=== PATIENT | male | born 1975 | race Caucasian/White ===

== ENCOUNTER 2017-12-24 23:39 | Emergency (ER) | payer MEDICAID ==
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
[2017-12-24] MEDS ORDERED: HYDROCODONE/APAP 5/325 TAB PO ONE (23:50)
[2017-12-24] MEDS ORDERED: IBUPROFEN 800 MG TAB PO ONE (23:50)
[2017-12-25] MEDS ORDERED: fentaNYL 100 MCG/2 ML INJ IVP ONE (00:38)
[2017-12-25 01:18] VITALS: BP 130/79
--- NOTE | 2017-12-25 14:45 | ASMTCMCOM ---
CM Note CM Note Notes: Patient contacted for follow up after ER visit related to patellar fracture on 12/24/17. Patient attempted to schedule an appointment with Dr. Moreno at [facility] as instructed per discharge instructions/ER referral. He was unable to schedule appointment with his insurance and told that he would have to be "self pay" due to his out of state medicaid I contacted Katy at [facility] and she confirmed that they are unable to bill patient's Medicaid ([facility]) for an office visit. I contacted [facility] as well, and they have the same policy. I spoke with patient after confirming with Dr. Johnson that it is strongly recommended that patient follow up with an orthopedic surgeon within the next week or two and get scheduled for surgical repair. I reinforced with patient the importance of continuing with his discharge instructions/precautions and that he should return home ([facility]) if able, to seek orthopedic follow up and surgery. Patient states that he is visiting his parents in [place] and was here to "help" them with a potential upcoming "move" to [place]. He acknowledges that he is very limited in what he can do to help them at this point and will consider returning to [place] for follow up care. Date Signed: 12/25/2017 02:17 PM Electronically Signed By:Macarena Hernandez RN
== END 2017-12-25 01:18 | disposition home or self-care (01) ==
LOC: EDUNIT#
DX: S82.002A Unspecified fracture of left patella, initial encounter for closed fracture (principal); W01.0XXA Fall on same level from slipping, tripping and stumbling without subsequent striking against object, initial encounter; Y93.01 Activity, walking, marching and hiking; Y92.410 Unspecified street and highway as the place of occurrence of the external cause; Z72.0 Tobacco use
CPT/HCPCS: 96374; J3010

== ENCOUNTER 2017-12-31 09:00 | Emergency (ER) | payer MEDICAID ==
[2017-12-31] MEDS ORDERED: OXYCODONE/APAP 5/325 TAB PO ONE (09:32)
--- NOTE | 2017-12-31 09:35 | EDPHY ---
H & P Stated Complaint: fx l patella last week/insurance issues/can't get ortho/out of pain meds Time Seen by Provider: 12/31/17 09:16 HPI/ROS: CHIEF COMPLAINT: Continued left knee pain HISTORY OF PRESENT ILLNESS: 42-year-old male seen the emergency department 7 days ago for complaints of acute left knee pain after he sustained a mechanical fall tripping landing on his left anterior knee noted to have a transverse inferior patella fracture, placed in knee immobilizer. That time case management consulted because he has out of state Medicaid. At that time egg caser discussed the challenges of out of state Medicaid and discussed with patient possibility of returning to [facility] for follow-up care. He returns to the ER complaining of continued pain, stating that he is unable to return to [facility] is hoping he can get further orthopedic care somewhere in [place]. He denies: Calf pain, cramping, discoloration, chest pain, dyspnea PRIMARY CARE PROVIDER: REVIEW OF SYSTEMS: A ten point review of systems was performed and is negative with the exception of the items mentioned in the HPI PHYSICAL EXAM (Prior to examination, patient consented to physical exam, hands were washed and my usual and customary physical exam procedures followed) 1) GENERAL: Well-developed, well-nourished, alert and oriented. Appears to be in no acute distress. 2) HEAD: Normocephalic 3) HEENT: Pupils equal, round, reactive to light bilaterally. 4) LUNGS: Breathing comfortably. 5) MUSCULOSKELETAL: Exam of the left knee shows soft tissue swelling with associated tenderness to palpation. Limited range of motion secondary to pain. Negative Homans. No palpable cord. No discoloration. . Compartments are soft. 6) SKIN: Normal coloration 7) VASCULAR: DP,PT pulses and cap refill present and brisk distally DIFFERENTIAL DIAGNOSIS: in no particular order including but not limited to fracture, sprain, compartment syndrome, septic arthritis, DVT MEDICAL DECISION MAKING I reviewed this patient's old medical records. I empathized with the challenges of seeking orthopedic care given his insurance situation. I have agreed to give him 1 further, final prescription for analgesia and will have the egg caser consult see if he can possibly get follow up at [facility] orthopedic or [facility] orthopedics. Doubt septic arthritis, doubt DVT, doubt compartment syndrome. I saw this patient independently based on established practice protocols. Care of patient under supervision of secondary supervising physician Dr Harris . - Personal History Current Tetanus Diphtheria and Acellular Pertussis (TDAP): Yes - Medical/Surgical History Hx Asthma: No Hx Chronic Respiratory Disease: No Hx Diabetes: No Hx Cardiac Disease: No Hx Renal Disease: No Hx Cirrhosis: No Hx Alcoholism: No Hx HIV/AIDS: No Hx Splenectomy or Spleen Trauma: No Other PMH: kidney stones fx l patella - Social History Smoking Status: Current every day smoker Constitutional: Initial Vital Signs Temperature (C) 36.5 C 12/31/17 09:12 Heart Rate 87 12/31/17 09:12 Respiratory Rate 17 12/31/17 09:12 Blood Pressure 123/79 H 12/31/17 09:12 O2 Sat (%) 98 12/31/17 09:12 O2 Delivery Mode Room Air Allergies/Adverse Reactions: ibuprofen Allergy (Verified 12/31/17 09:11) latex Allergy (Verified 12/31/17 09:11) morphine Allergy (Verified 12/31/17 09:11) Penicillins Allergy (Verified 12/31/17 09:11) Home Medications: Medication Instructions Recorded Hydrocodone/APAP 5/325 [Leggett 1 tab PO Q6 PRN #10 tab 12/31/17 5/325 (RX)] Medical Decision Making - Data Points Medications Given: Discontinued Medications Oxycodone/Acetaminophen (Percocet 5/325) 2 tab PO EDNOW ONE Stop: 12/31/17 09:33 Last Admin: 12/31/17 09:34 Dose: 2 tab Departure - Departure Disposition: Home, Routine, Self-Care Clinical Impression: Left patella fracture Qualifiers: Encounter type: subsequent encounter Fracture type: closed Fracture morphology : transverse Fracture alignment: displaced Fracture healing: with routine healing Qualified Code(s): S82.032D - Displaced transverse fracture of left patella, subsequent encounter for closed fracture with routine healing Condition: Good Instructions: Patellar Fracture (ED) Additional Instructions: Return to the ER immediately if you experience discoloration, have worsening pain, numbness, tingling, or any other symptoms that concern you. If you received x-rays in the emergency department today, be advised, that ligamentous , tendon, muscular, and other non-bony injury cannot be fully ruled out. Try to keep your affected extremity elevated above the level of your chest, and keep cold packs on the affected area, for the next 48 hours. Referrals: Micheal Moreno MD [Medical Doctor] - 2-3 days, call for appt. Prescriptions: Hydrocodone/APAP 5/325 [Leggett 5/325 (RX)] 1 tab PO Q6 PRN #10 tab PRN Reason: Pain, Severe
[2017-12-31 10:53] VITALS: BP 131/78
--- NOTE | 2017-12-31 12:18 | ASMTCMCOM ---
CM Note CM Note Notes: See ER report from 12/24/17 and CM report from 12/25/17. Patient was visiting his father in [place] from [facility] and has decided to permanently relocate to [place]. He followed up with [place] with [employer] since his last ER visit and has completed an application for [place] Medicaid. He was "approved" and his application is pending. I have LM with [facility] to inquire into the timeline of when his Medicaid will be active and encouraged patient to follow up with [facility] [place] as well. I provided patient with the ER CM phone number and asked him to call us as soon as he confirms that his Medicaid is active so that we can fax today's ER report/referral to Dr. Moreno ( orthopedic referral). Date Signed: 12/31/2017 11:42 AM Electronically Signed By:Macarena Hernandez RN
--- NOTE | 2018-01-02 16:12 | ASMTCMCOM ---
CM Note CM Note Notes: Patient called CM to update status of [place] Medicaid. Per patient, his Medicaid number is [id number] and his status will be updated as "active" by January 05. I have faxed over patient's last ER report/referral to Dr. Moreno @ [facility] for Orthopedics and encouraged patient to follow up with them as well Date Signed: 01/02/2018 04:08 PM Electronically Signed By:Macarena Hernandez RN
== END 2017-12-31 11:05 | disposition home or self-care (01) ==
DX: S82.032D Displaced transverse fracture of left patella, subsequent encounter for closed fracture with routine healing (principal); F17.200 Nicotine dependence, unspecified, uncomplicated; W01.0XXD Fall on same level from slipping, tripping and stumbling without subsequent striking against object, subsequent encounter; Y99.9 Unspecified external cause status